=== PATIENT | female | born 1965 | race African-American/Black ===

== ENCOUNTER 2020-07-18 14:37 | Outpatient (CLI) | payer OTHER, SELFPAY ==
--- NOTE | ~2020-07-18 | MM_ITS ---
EXAMINATION: MM screening [facility]on[facility] BI w tiffanie HISTORY: Screening mammogram TECHNIQUE: Craniocaudal and mediolateral oblique 3-D tomosynthesis images were obtained and synthetic 2-D images were generated. CAD analysis was submitted and interpreted. COMPARISON: .......2016, 01/28/2013 bilateral digital screening mammogram examinations BREAST PARENCHYMAL COMPOSITION: There are scattered areas of fibroglandular density. FINDINGS: Chronic nodular fibroglandular stroma, diminished in prominence over serial examinations. S cattered chronic bilateral low-density circumscribed subcentimeter masses, with benign mammographic f eatures. There is no evidence of suspicious mass, calcification, or architectural distortion to sugge st malignancy in either breast. There has been no suspicious interval change. IMPRESSION: 1. No mammographic evidence of malignancy. 2. Recommend routine screening mammography in one year. BI-RADS Category 2: Benign finding(s). Reviewed, dictated and finalized at location A. [employer]
== END 2020-07-18 14:38 | disposition home or self-care (01) ==
LOC: ANHIMG 14:40
PROVIDERS: PCP Obstetrics & Gynecology; Visit Provider Obstetrics & Gynecology
DX: Z12.31 Encounter for screening mammogram for malignant neoplasm of breast (principal)
CPT/HCPCS: 77063; 77067

== ENCOUNTER 2021-02-15 11:46 | Outpatient (CLI) | payer OTHER, SELFPAY ==
--- NOTE | ~2021-02-15 | MMUS_ITS ---
EXAMINATION: MM diagnostic ronny RT w tiffanie, US breast RT complete HISTORY: Palpable right breast lumps TECHNIQUE: Additional 3-D tomosynthesis images of the right breast were performed and synthetic 2-D i mages were generated. CAD analysis was submitted and interpreted. High resolution complete right amy st ultrasound was performed. COMPARISON: Comparison to multiple prior studies sequentially, with oldest reviewed study dated 10/05. BREAST PARENCHYMAL COMPOSITION: The breasts are heterogenously dense, which may obscure small masses. FINDINGS: MAMMOGRAPHIC FINDINGS: No new masses, calcifications or architectural distortion in the right breast to suggest malignancy. ULTRASOUND: Right breast ultrasound: At 9:00, 9 cm from the nipple, there is a hypoechoic mass measuring 6 x 6 x 5 mm with internal vascularity. There are some slightly irregular margins. No significant posterior f eatures. At 9:00, 9 cm from the nipple, there is an oval hypoechoic mass with internal vascularity an d no posterior features. There is parallel configuration. This mass measures 7 x 5 x 4 mm. At 10:00, 9 cm from the nipple, there is some oval hypoechoic mass with internal vascularity measuring 6 x 5 x 5 mm. IMPRESSION: 1. Multiple solid right breast masses located at the 9 and 10:00 positions of the right breast. 2. Ultrasound-guided right breast biopsies recommended for all 3 breast masses. BI-RADS category 4, suspicious findings. Reviewed, dictated and finalized at location A. IMPRESSION: 1. Multiple solid right breast masses located at the 9 and 10:00 positions of t he right breast. 2. Ultrasound-guided right breast biopsies recommended for all 3 breast masses. BI-RADS category 4, suspicious findings.
== END 2021-02-15 11:47 | disposition home or self-care (01) ==
LOC: ANHIMG 11:47
PROVIDERS: PCP Obstetrics & Gynecology; Visit Provider Obstetrics & Gynecology
DX: N63.11 Unspecified lump in the right breast, upper outer quadrant (principal)
CPT/HCPCS: 76641; 77061; 77065; G0279

== ENCOUNTER 2022-02-18 16:15 | Outpatient (CLI) | payer OTHER, SELFPAY ==
--- NOTE | ~2022-02-18 | MM_ITS ---
EXAMINATION: MM screening [facility] BI w tiffanie HISTORY: ..... TECHNIQUE: Craniocaudal and mediolateral oblique 3-D tomosynthesis images were obtained and synthetic 2-D images were generated. CAD analysis was submitted and interpreted. COMPARISON: 02/15/2021 diagnostic right mammogram and complete right breast ultrasound BREAST PARENCHYMAL COMPOSITION: There are scattered areas of fibroglandular density. FINDINGS: Multiple chronic bilateral circumscribed intramammary lymph nodes. There is no evidence of suspicious mass, calcification, or architectural distortion to suggest malignancy in either breast. T here has been no suspicious interval change. IMPRESSION: 1. No mammographic evidence of malignancy. 2. Recommend routine screening mammography in one year. BI-RADS Category 2: Benign finding(s). Reviewed, dictated and finalized at location A.
== END 2022-02-18 16:16 | disposition home or self-care (01) ==
PROVIDERS: PCP Obstetrics & Gynecology; Visit Provider Obstetrics & Gynecology
DX: Z12.31 Encounter for screening mammogram for malignant neoplasm of breast (principal)
CPT/HCPCS: 77063; 77067